=== PATIENT | male | born 1985 | race African-American/Black ===

== ENCOUNTER 2017-09-04 20:58 | Emergency (ER) | payer BC ==
[~2017-09-04] VITALS: Ht 185.4 cm; Wt 119.3 kg
[~2017-09-04 20:58] MED LIST: BENTYL20 MG PO; OMEPRAZOLE20 MG PO
[2017-09-04 21:36] LABS: HEMATOCRIT 41.8 % (38.0-50.0); MCH 30.8 PG (29.0-34.0); MCHC 34.7 G/DL (30.0-36.0); MCV 88.7 FL (86-99); MEAN PLAT.VOLUME 10.6 uM^3 (9.0-12.4); PLATELET COUNT 298 K/uL (156-360); RBC DIS.WIDTH-CV 11.8 % (11.8-14.6); RBC DIS.WIDTH-SD 38.1 % (39-53); RED BLOOD COUNT 4.71 M/uL (4.00-5.50); WHITE BLOOD COUNT 8.5 K/uL (4.1-10.2)
[2017-09-04 21:51] LABS: CHLORIDE 105 mEq/L (99-109); SODIUM 138 mEq/L (136-147)
[2017-09-04 21:54] LABS: GLUCOSE 96 mg/dL (70-99)
[2017-09-04 21:55] LABS: ANION GAP 7 MEQ/L (2-14); TOTAL BILIRUBIN 0.7 mg/dL (0.0-1.0)
[2017-09-04 21:57] LABS: ALKALINE PHOSPHATASE 60 IU/L (3-129); GFR ESTIMATE (CALCULATED) > 59 mL/min/ (58.99-99999)
[2017-09-04 21:58] LABS: UREA NITROGEN (BUN) 14 mg/dL (9-23)
[2017-09-04 22:23] LABS: ADD MIUA? YES; BILIRUBIN NEGATIVE; BLOOD NEGATIVE; COLOR YELLOW ((YELLOW)); GLUCOSE (STRIP) NEGATIVE; KETONES NEGATIVE; LEUKOCYTES NEGATIVE; NITRITE NEGATIVE; PROTEIN (STRIP) 100; SPECIFIC GRAVITY 1.027 (1.000-1.030)
[2017-09-04] MEDS ORDERED: BENTYL20 MG PO (22:37)
[2017-09-04 22:58] LABS: BACTERIA RARE /HPF; EPITHELIAL CELLS NONE SEEN /HPF; MUCUS NONE SEEN /LPF; RED BLOOD CELLS 0-5 /HPF (0-5); UCUL ADDED? NO; WHITE BLOOD CELLS 0-5 /HPF (0-5)
[2017-09-04 23:13] VITALS: BP 164/86
== END 2017-09-04 23:24 | disposition home or self-care (01) ==
LOC: EME 20:58
DX: R10.30 Lower abdominal pain, unspecified (principal)
CPT/HCPCS: 80053; 81003; 85027; 99281; 99284; J0500; J1885